=== PATIENT | male | born 1960 | race Caucasian/White ===

== ENCOUNTER 2019-07-26 18:20 | Inpatient (IN) | payer OTHER, MEDICAID ==
[~2019-07-26] VITALS: Ht 175.3 cm; Wt 83.9 kg
[~2019-07-26 18:20] MED LIST: ACETAMINOPHEN-1 EAC1 PO; AVELOX 400 MG400 M1 PO; LEXAPRO20 MG PO; NORCO 5-325 TA1 EACH PO; NOVOLOG100 UNIT/1; PROAIR HFA8.5 GM INH; PROMETHAZINE V473 ML PO; TESSALON PERLE100 MG PO
[2019-07-26 18:27] VITALS: BP 112/62
[2019-07-26 19:32] LABS: ABSOLUTE EOSINOPHILS 0.1 thou/uL (0.0-0.7); ABSOLUTE LYMPHOCYTES 0.9 thou/uL (0.8-5.3); ABSOLUTE MONOCYTES 0.3 thou/uL (0.0-1.2); ABSOLUTE NEUTROPHILS 2.8 thou/uL (1.6-8.1); BASOPHILS 1.2 %; HEMATOCRIT 22.6 % (42.0-52.0); HEMOGLOBIN 7.1 gm/dL (14.0-18.0); LYMPHOCYTES 21.8 %; MCH 24.1 pg (26.0-34.0); MCHC 31.4 g/dL (28.0-37.0); MCV 76.8 fL (80.0-100.0); MONOCYTES 8.3 %; MPV 9.1 fl. (7.2-11.1); NUCLEATED RBCS 0 /100WBC; PLATELET COUNT* 85 thou/uL (150-400); POLYS 66.7 %; RBC 2.94 mil/uL (4.50-6.00); RDW-CV 20.5 % (10.5-14.5); WBC 4.1 thou/uL (4.0-11.0)
[2019-07-26 19:54] LABS: ALBUMIN 2.7 g/dL (3.4-5.0); CREATININE 1.1 mg/dL (0.6-1.3); POTASSIUM 4.5 mmol/L (3.5-5.1); TOTAL BILIRUBIN 0.5 mg/dL (<0.1-1.0); TOTAL PROTEIN 5.7 g/dL (6.4-8.2)
[2019-07-26 19:58] LABS: ANISOCYTOSIS 2+; HYPOCHROMASIA 1+; MICROCYTES 1+; OVALOCYTES 1+; PLATELET ESTIMATE DECREASED
[2019-07-26 22:27] VITALS: BP 114/70
[2019-07-26 23:18] LABS: % SATURATION 25 % (20-39); IRON 80 ug/dL (50-175)
--- NOTE | 2019-07-27 04:17 | NUR ---
PT RECEIVED FROM ED IN ROOM 205. WHEN THIS NURSE WHEN TO ASSESS THE PT, HE SAID THIS NURSE HE DOESN'T WANT TO STAY IN UNIT WHERE COVID PT'S ARE STAYING AND WANTS TO LEAVE AMA. THIS NURSE OFFERED HIM, THAT WE COULD MOVE HIM TO THE ROOMS IN THE HALLWAY IF THAT MAKES HIM FEEL BETTER. JAVA MANAGER NOTIFIED. AMA PAPERS SIGNED, IV TAKEN OUT AND PT ESCORTED WITH THIS NURSE.
--- NOTE | 2019-07-27 09:54 | EKG ---
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: : 1960 Requested By: Eduardo Frankel Order Number: [id number] MD: Kristopher Alves Measurements Intervals [place] Rate: 84 P: 33 WY: 135 QRS: 33 QRSD: 89 T: 61 QT: 373 QTc: 441 Interpretive Statements Sinus rhythm Atrial premature complex Borderline repolarization abnormality Compared to ECG 02/13/2017 13:40:32 Atrial premature complex(es) now present Left ventricular hypertrophy no longer present Electronically Signed On 07-27-2019 9:53:07 CDT by Kristopher Alves [email or web address] <ELECTRONICALLY SIGNED> By: Kristopher Alves MD, FAC 07/27/19 0953 1833 1833 Kristopher Alves MD, FAC /EPI
== END 2019-07-26 23:25 | disposition left against medical advice (07) | DRG 377 ==
LOC: M.ERS 18:20 → M.TBA-ER 21:53 → M.ORTHSURG 22:40
PROVIDERS: Family Medicine; ADMIT Family Medicine
DX: K92.2 Gastrointestinal hemorrhage, unspecified (principal); E43 Unspecified severe protein-calorie malnutrition; R65.11 Systemic inflammatory response syndrome (SIRS) of non-infectious origin with acute organ dysfunction; R04.2 Hemoptysis; E87.1 Hypo-osmolality and hyponatremia; E87.2 Acidosis; K72.90 Hepatic failure, unspecified without coma; E11.9 Type 2 diabetes mellitus without complications; I10 Essential (primary) hypertension; I45.6 Pre-excitation syndrome; G47.33 Obstructive sleep apnea (adult) (pediatric); K70.31 Alcoholic cirrhosis of liver with ascites; F12.90 Cannabis use, unspecified, uncomplicated; D50.9 Iron deficiency anemia, unspecified; D69.59 Other secondary thrombocytopenia; D73.1 Hypersplenism; Z20.828 Contact with and (suspected) exposure to other viral communicable diseases; Z79.4 Long term (current) use of insulin; Z79.899 Other long term (current) drug therapy; Z91.14 Patient's other noncompliance with medication regimen; Z68.27 Body mass index [BMI] 27.0-27.9, adult; Z99.81 Dependence on supplemental oxygen